=== PATIENT | male | born 1975 | race African-American/Black ===

== ENCOUNTER 2019-01-21 16:08 | Inpatient (IN) | payer MEDICAID ==
[~2019-01-21] VITALS: Ht 172.7 cm; Wt 56.2 kg
[2019-01-21] MEDS ORDERED: LORAZEPAM 2MG/ML CPJ ONE (18:17)
[2019-01-21] MEDS ORDERED: LORAZEPAM 2MG/ML CPJ IM ONE (18:30)
[2019-01-21] MEDS ORDERED: LEVETIRACETAM 1000MG/100ML 100 ML IV ONE (18:30)
[2019-01-21 18:52] LABS: BASOPHILS % 0.8 % (0.0-2.0); EOSINOPHILS % 1.8 % (0.0-5.0); HEMATOCRIT. 43.5 % (42.0-52.0); HEMOGLOBIN. 14.3 g/dL (14.0-18.0); LYMPHOCYTES % 23.4 % (20.0-50.0); MEAN CORPUSCULAR VOLUME 91.1 fL (80.0-94.0); MEAN PLATELET VOLUME 6.8 fl (7.4-10.4); MONOCYTES % 12.5 % (2.0-8.0); NEUTROPHILS % 61.5 % (40.0-76.0); PLATELET 253 x1000/uL (130-400); RED BLOOD CELL COUNT 4.78 mill/uL (4.7-6.1)
[2019-01-21 18:54] LABS: CHLORIDE 107 mEq/L (98-107)
[2019-01-21 18:58] LABS: ETHANOL BLOOD < 10 mg/dL
[2019-01-21 19:04] LABS: CARBAMAZEPINE < 0.5 ug/mL (4-12)
[2019-01-21 19:10] LABS: PHENOBARBITAL < 2.1 ug/mL (15.0-40.0)
[2019-01-21 22:55] VITALS: BP 100/68
[2019-01-21] MEDS ORDERED: HYDROCODONE/ACETAMINOPHEN 10/325MG TABLET PO PRN (23:00)
[2019-01-21] MEDS ORDERED: ACETAMINOPHEN 650MG SUPP PR PRN (23:00)
[2019-01-21] MEDS ORDERED: ACETAMINOPHEN 650MG/20.3ML UDC GT PRN (23:00)
[2019-01-21] MEDS ORDERED: GUAIFENESIN 200MG/10ML SUGAR FREE UDC PO PRN (23:00)
[2019-01-21] MEDS ORDERED: MAGNESIUM/ALUMINUM HYDROXIDE/SIMETHICONE 30ML UDC PO PRN (23:00)
[2019-01-21] MEDS ORDERED: DIPHENHYDRAMINE 50MG/ML VIAL IV PRN (23:00)
[2019-01-21] MEDS ORDERED: ACETAMINOPHEN 325MG TABLET PO PRN (23:00)
[2019-01-21] MEDS ORDERED: ONDANSETRON HCL 4MG/2ML INJ IV PRN (23:00)
[2019-01-21] MEDS ORDERED: HYDROCODONE/ACETAMINOPHEN 5/325MG TABLET PO PRN (23:00)
[2019-01-21] MEDS ORDERED: LORAZEPAM 2MG/ML CPJ IV PRN (23:00)
[2019-01-21] MEDS ORDERED: NA PHOS,M-B/NA PHOS,DI-BA ENEMA 118ML PR PRN (23:00)
[2019-01-21] MEDS ORDERED: DOCUSATE SODIUM 100MG CAPSULE PO PRN (23:00)
[2019-01-21 23:30] VITALS: BP 100/68
[2019-01-22 04:00] VITALS: BP 100/56
[2019-01-22] MEDS ORDERED: PHEN100C4 PO (04:33)
[2019-01-22 08:00] VITALS: BP 101/54
[2019-01-22 09:08] LABS: BASOPHILS % 0.4 % (0.0-2.0); EOSINOPHILS % 1.6 % (0.0-5.0); HEMATOCRIT. 41.2 % (42.0-52.0); HEMOGLOBIN. 13.5 g/dL (14.0-18.0); LYMPHOCYTES % 17.9 % (20.0-50.0); MEAN CORPUSCULAR HEMOGLOBIN 29.8 pg (28.0-32.0); MEAN CORPUSCULAR VOLUME 90.6 fL (80.0-94.0); MEAN PLATELET VOLUME 6.7 fl (7.4-10.4); MONOCYTES % 10.6 % (2.0-8.0); NEUTROPHILS % 69.5 % (40.0-76.0); PLATELET 261 x1000/uL (130-400); RED BLOOD CELL COUNT 4.54 mill/uL (4.7-6.1); RED CELL DISTRIBUTION WIDTH 13.5 % (11.6-14.6)
[2019-01-22] MEDS: LEVETIRACETAM 500MG TABLET PO SCH ×2 (09:38→21:51)
[2019-01-22 09:50] LABS: CHLORIDE 107 mEq/L (98-107)
[2019-01-22 09:57] LABS: LDL CHOLESTEROL 80 mg/dL (5-100)
[2019-01-22 09:58] LABS: HDL CHOLESTEROL 51 mg/dL (40-59)
[2019-01-22 12:00] VITALS: BP 104/61
[2019-01-22] MEDS ORDERED: KEPP500 PO (15:41)
[2019-01-22 16:00] VITALS: BP 110/68
[2019-01-22] MEDS ORDERED: LORAZEPAM 2MG/ML CPJ IM NR (19:15)
[2019-01-22 20:00] VITALS: BP 100/66
[2019-01-23] VITALS: BP 115/77
[2019-01-23 04:00] VITALS: BP 120/88
[2019-01-23 07:49] LABS: *BARBITURATES SCREEN URINE NEGATIVE (NEGATIVE)
[2019-01-23 07:50] LABS: *AMPHETAMINES SCREEN URINE NEGATIVE (NEGATIVE); *BENZODIAZEPINES SCREEN URINE NEGATIVE (NEGATIVE); *COCAINE SCREEN URINE NEGATIVE (NEGATIVE)
[2019-01-23 07:51] LABS: CANNABINOID URINE SCREEN PRESUMTIVE POSITIVE (NEGATIVE); METHADONE URINE SCREEN NEGATIVE (NEGATIVE); OPIATES URINE SCREEN NEGATIVE (NEGATIVE); PHENCYCLIDINE URINE SCREEN NEGATIVE (NEGATIVE)
[2019-01-23] MEDS: LEVETIRACETAM 500MG TABLET PO SCH ×2 (09:26→20:13)
[2019-01-23 20:00] VITALS: BP 117/63
[2019-01-23] MEDS ORDERED: IOHEXOL-300 100 ML BOTTLE ONE (23:53)
[2019-01-24] VITALS: BP 111/73
[2019-01-24 04:00] VITALS: BP 101/67
[2019-01-24] MEDS: LEVETIRACETAM 500MG TABLET PO SCH (10:14)
[2019-01-24 11:45] VITALS: BP 105/66
[2019-01-25 05:17] LABS: HIV SCREEN 4G Non Reactive (Non Reactive)
== END 2019-01-24 15:55 | disposition home or self-care (01) | DRG 53 ==
LOC: EDBD 16:08 → ER 16:08 → 8WST 19:40 → EDBEDREQ 19:44 → ENRESERV 21:23
PROVIDERS: ADMIT Family Medicine; ATTEND Family Medicine
DX: G40.409 Other generalized epilepsy and epileptic syndromes, not intractable, without status epilepticus (principal); R64 Cachexia; F17.210 Nicotine dependence, cigarettes, uncomplicated; R62.7 Adult failure to thrive; Z59.0 Homelessness; Z72.89 Other problems related to lifestyle; Z91.19 Patient's noncompliance with other medical treatment and regimen; Z68.1 Body mass index [BMI] 19.9 or less, adult
CPT/HCPCS: 36415; 80061; 80156; 80165; 80184; 80185; 80305; 80307; 80320; 80329; 87389; 96365; 96372; 97162; 99285; C1893; J1953; J2060; Q9967; G0480

== ENCOUNTER 2019-06-07 14:48 | Emergency (ER) | payer MEDICAID ==
[~2019-06-07] VITALS: Ht 172.7 cm; Wt 73.0 kg
[~2019-06-07 14:48] MED LIST: KEPP500 PO; PHEN100C4 PO
[2019-06-07] MEDS ORDERED: SODIUM CHLORIDE 0.9% 1,000 ML IV ONE (18:18)
[2019-06-07] MEDS ORDERED: LEVETIRACETAM 1000MG/100ML 100 ML IV ONE (18:30)
[2019-06-07 18:44] LABS: BASOPHILS % 1.1 % (0.0-2.0); HEMATOCRIT. 43.6 % (42.0-52.0); HEMOGLOBIN. 14.4 g/dL (14.0-18.0); LYMPHOCYTES % 28.7 % (20.0-50.0); MEAN CORPUSCULAR HEMOGLOBIN 29.9 pg (28.0-32.0); MEAN CORPUSCULAR VOLUME 90.8 fL (80.0-94.0); MEAN PLATELET VOLUME 6.6 fl (7.4-10.4); MONOCYTES % 12.5 % (2.0-8.0); NEUTROPHILS % 56.7 % (40.0-76.0); PLATELET 319 x1000/uL (130-400); RED CELL DISTRIBUTION WIDTH 14.3 % (11.6-14.6)
[2019-06-07 18:49] LABS: CHLORIDE 108 mEq/L (98-107)
[2019-06-07 18:53] LABS: ETHANOL BLOOD < 10 mg/dL
[2019-06-09 09:40] VITALS: BP 99/61
== END 2019-06-09 09:52 | disposition home or self-care (01) ==
LOC: ER 14:48
DX: G40.909 Epilepsy, unspecified, not intractable, without status epilepticus (principal)
CPT/HCPCS: 36415; 80053; 80320; 85025; 96365; 99283; J1953; J7030; Z7610; G0480

== ENCOUNTER 2019-11-28 11:41 | Inpatient (IN) | payer MEDICAID ==
[~2019-11-28] VITALS: Ht 152.4 cm; Wt 53.1 kg
[2019-11-28] MEDS ORDERED: SODIUM CHLORIDE 0.9% 1,000 ML IV ONE (11:51)
[2019-11-28] MEDS ORDERED: LEVETIRACETAM 1000MG/100ML 100 ML IV ONE (12:00)
[2019-11-28 14:08] LABS: BASOPHILS % 0.6 % (0.0-2.0); EOSINOPHILS % 1.1 % (0.0-5.0); HEMATOCRIT. 52.5 % (42.0-52.0); HEMOGLOBIN. 16.8 g/dL (14.0-18.0); MEAN CORPUSCULAR HEMOGLOBIN 29.1 pg (28.0-32.0); MEAN CORPUSCULAR VOLUME 90.7 fL (80.0-94.0); MEAN PLATELET VOLUME 7.1 fl (7.4-10.4); MONOCYTES % 9.6 % (2.0-8.0); NEUTROPHILS % 66.7 % (40.0-76.0); PLATELET 243 x1000/uL (130-400); RED BLOOD CELL COUNT 5.79 mill/uL (4.7-6.1); RED CELL DISTRIBUTION WIDTH 14.4 % (11.6-14.6)
[2019-11-28 14:16] LABS: CHLORIDE 126 mEq/L (98-107)
[2019-11-28 14:24] LABS: ETHANOL BLOOD < 10 mg/dL
[2019-11-28 14:30] LABS: PHENOBARBITAL < 2.1 ug/mL (15.0-40.0)
[2019-11-28] MEDS ORDERED: PHENYTOIN SODIUM 1,000 MG in SODIUM CHLORIDE 0.9% 100 ML IV ONE (16:00)
[2019-11-28] MEDS ORDERED: PHENOBARBITAL 100MG TABLET PO ONE (16:00)
[2019-11-28 23:40] VITALS: BP 104/76
[2019-11-29] VITALS: BP 104/76
[2019-11-29] MEDS ORDERED: LORAZEPAM 2MG/ML CPJ IV PRN (00:30)
[2019-11-29] MEDS ORDERED: SODIUM CHLORIDE 0.45% 1,000 ML IV SCH (02:00)
[2019-11-29 04:00] VITALS: BP_SYST 144; BP_SYST 98; BP_DIAS 58; BP_DIAS 72
[2019-11-29] MEDS: LEVETIRACETAM 500MG TABLET PO SCH ×2 (08:43→21:51)
[2019-11-29 08:59] LABS: CHLORIDE 124 mEq/L (98-107)
[2019-11-29] MEDS: DEXTROSE 5% WATER 1,000 ML IV SCH (12:42)
[2019-11-29 20:00] VITALS: BP 106/57
[2019-11-29] MEDS: PHENYTOIN SODIUM EXTENDED 100MG CAPSULE PO SCH (21:51)
[2019-11-30] VITALS: BP 98/48
[2019-11-30] MEDS: DEXTROSE 5% WATER 1,000 ML IV SCH (01:20)
[2019-11-30 04:00] VITALS: BP 108/62
[2019-11-30] MEDS: LEVETIRACETAM 500MG TABLET PO SCH ×2 (09:00→22:01)
[2019-11-30 16:34] LABS: CHLORIDE 112 mEq/L (98-107)
[2019-11-30 20:00] VITALS: BP 95/57
[2019-11-30] MEDS: PHENYTOIN SODIUM EXTENDED 100MG CAPSULE PO SCH (22:01)
[2019-12-01] VITALS: BP 95/56
[2019-12-01 04:00] VITALS: BP 98/63
[2019-12-01] MEDS: DEXTROSE 5% WATER 1,000 ML IV SCH (04:35)
[2019-12-01 07:12] LABS: BASOPHILS % 0.4 % (0.0-2.0); EOSINOPHILS % 1.8 % (0.0-5.0); HEMATOCRIT. 41.2 % (42.0-52.0); HEMOGLOBIN. 13.5 g/dL (14.0-18.0); LYMPHOCYTES % 26.6 % (20.0-50.0); MEAN CORPUSCULAR HEMOGLOBIN 29.3 pg (28.0-32.0); MEAN CORPUSCULAR VOLUME 89.4 fL (80.0-94.0); MEAN PLATELET VOLUME 7.6 fl (7.4-10.4); MONOCYTES % 11.5 % (2.0-8.0); NEUTROPHILS % 59.7 % (40.0-76.0); PLATELET 177 x1000/uL (130-400); RED BLOOD CELL COUNT 4.61 mill/uL (4.7-6.1); RED CELL DISTRIBUTION WIDTH 13.7 % (11.6-14.6)
[2019-12-01 07:24] LABS: CHLORIDE 110 mEq/L (98-107)
[2019-12-01 07:30] LABS: PHOSPHORUS 2.8 mg/dL (2.5-4.9)
[2019-12-01] MEDS: LEVETIRACETAM 500MG TABLET PO SCH ×2 (09:00→11:31)
== END 2019-12-01 17:58 | disposition home or self-care (01) | DRG 53 ==
LOC: ER 11:41 → 5WST 16:13 → ENRESERV 22:12 → 5WST 23:45
PROVIDERS: ADMIT Internal Medicine; ATTEND Internal Medicine
DX: G40.909 Epilepsy, unspecified, not intractable, without status epilepticus (principal); N17.9 Acute kidney failure, unspecified; E87.8 Other disorders of electrolyte and fluid balance, not elsewhere classified; E87.0 Hyperosmolality and hypernatremia; T42.76XA Underdosing of unspecified antiepileptic and sedative-hypnotic drugs, initial encounter; Z72.0 Tobacco use; Z82.49 Family history of ischemic heart disease and other diseases of the circulatory system; Y92.89 Other specified places as the place of occurrence of the external cause
CPT/HCPCS: 36415; 80048; 80053; 80184; 80185; 80320; 83735; 84100; 84484; 85025; 93005; 99291; J1165; J1953; J7030; J7050; J7070; G0480

== ENCOUNTER 2019-12-01 21:07 | Emergency (ER) | payer MEDICAID ==
[~2019-12-01] VITALS: Ht 172.7 cm; Wt 69.0 kg
[2019-12-01 22:48] LABS: BASOPHILS % 0.2 % (0.0-2.0); EOSINOPHILS % 1.3 % (0.0-5.0); HEMATOCRIT. 45.9 % (42.0-52.0); HEMOGLOBIN. 14.9 g/dL (14.0-18.0); LYMPHOCYTES % 22.5 % (20.0-50.0); MEAN CORPUSCULAR HEMOGLOBIN 29.1 pg (28.0-32.0); MEAN CORPUSCULAR VOLUME 89.8 fL (80.0-94.0); MEAN PLATELET VOLUME 7.7 fl (7.4-10.4); MONOCYTES % 9.4 % (2.0-8.0); NEUTROPHILS % 66.6 % (40.0-76.0); PLATELET 157 x1000/uL (130-400); RED BLOOD CELL COUNT 5.11 mill/uL (4.7-6.1); RED CELL DISTRIBUTION WIDTH 13.8 % (11.6-14.6)
[2019-12-01 22:55] LABS: CHLORIDE 109 mEq/L (98-107)
[2019-12-01 22:59] LABS: ETHANOL BLOOD < 10 mg/dL
[2019-12-02 01:03] LABS: CLARITY URINE CLOUDY (CLEAR); COLOR URINE YELLOW (YELLOW); KETONES URINE NEGATIVE (NEGATIVE); LEUKOCYTE ESTERASE URINE NEGATIVE (NEGATIVE); NITRITE URINE NEGATIVE (NEGATIVE); OCCULT BLOOD URINE NEGATIVE (NEGATIVE); PROTEIN URINE NEGATIVE (NEGATIVE); SPECIFIC GRAVITY URINE 1.022 (1.005-1.030)
[2019-12-02 01:14] LABS: *AMPHETAMINES SCREEN URINE NEGATIVE (NEGATIVE); *BARBITURATES SCREEN URINE PRESUMTIVE POSITIVE (NEGATIVE); *BENZODIAZEPINES SCREEN URINE NEGATIVE (NEGATIVE); *COCAINE SCREEN URINE NEGATIVE (NEGATIVE); METHADONE URINE SCREEN NEGATIVE (NEGATIVE); OPIATES URINE SCREEN NEGATIVE (NEGATIVE)
[2019-12-02 01:15] LABS: CANNABINOID URINE SCREEN NEGATIVE (NEGATIVE); PHENCYCLIDINE URINE SCREEN NEGATIVE (NEGATIVE)
[2019-12-02] MEDS ORDERED: SODIUM CHLORIDE 0.9% 1,000 ML IV ONE (06:00)
[2019-12-03 10:46] VITALS: BP 98/69
== END 2019-12-03 10:54 | disposition home or self-care (01) ==
LOC: ER 21:07
DX: R56.9 Unspecified convulsions (principal); F17.290 Nicotine dependence, other tobacco product, uncomplicated
CPT/HCPCS: 36415; 80053; 80185; 80307; 80320; 80329; 85025; 93005; 99285; G0480